=== PATIENT | male | born 1985 | race Caucasian/White ===

== ENCOUNTER 2018-02-08 11:48 | Emergency (ER) | payer OTHER ==
[2018-02-08 11:59] VITALS: BP 140/80
--- NOTE | 2018-02-08 12:16 | EDPHY ---
H & P Stated Complaint: sinus congestion and left ear pain started 1 week ago Time Seen by Provider: 02/08/18 12:10 HPI/ROS: CHIEF COMPLAINT: Sinus congestion and left ear pain HISTORY OF PRESENT ILLNESS: The patient is a healthy 32-year-old man who comes to the emergency department complaining that for the last week or so he and his family have had runny nose and cold. Rest of his family seemed to improve however he developed sinus congestion and pain over the last several days. Today he also developed severe left ear pain. No dizziness. No tinnitus. No vision changes. No headache. No neck stiffness. No cough, no difficulty breathing. Severity: Moderate Modifying factors: No improvement with Mucinex REVIEW OF SYSTEMS: Constitutional: denies: chills, fever, recent illness, recent injury EENTM: See HPI Respiratory: denies: cough, shortness of breath Cardiac: denies: chest pain, irregular heart rate, lightheadedness, palpitations Gastrointestinal/Abdominal: denies: abdominal pain, diarrhea, nausea, vomiting, blood streaked stools Genitourinary: denies: dysuria, frequency, hematuria, pain Musculoskeletal: denies: joint pain, muscle pain Skin: denies: lesions, rash, jaundice, bruising Neurological: denies: headache, numbness, paresthesia, tingling, dizziness, weakness Hematologic/Lymphatic: denies: blood clots, easy bleeding, easy bruising Immunologic/allergic: denies: HIV/AIDS, transplant 10 systems reviewed and negative except as noted EXAM: GENERAL: Well-appearing, well-nourished and in no acute distress. HEAD: Atraumatic, normocephalic. EYES: Pupils equal round and reactive to light, extraocular movements intact, sclera anicteric, conjunctiva are normal. ENT: Left tympanic membrane erythematous and fusion with slight bleeding., sinus congestion and mild tenderness, oropharynx clear without exudates. Moist mucous membranes. NECK: Normal range of motion, supple without lymphadenopathy or JVD. LUNGS: Breath sounds clear to auscultation bilaterally and equal. No wheezes rales or rhonchi. HEART: Regular rate and rhythm without murmurs, rubs or gallops. ABDOMEN: Soft, nontender, normoactive bowel sounds. No guarding, no rebound. No masses appreciated. BACK: No CVA tenderness, no spinal tenderness, step-offs or deformities EXTREMITIES: Normal range of motion, no pitting or edema. No clubbing or cyanosis. NEUROLOGICAL: Cranial nerves II through XII grossly intact. Normal speech, normal gait. 5/5 strength, normal movement in all extremities, normal sensation , normal reflexes PSYCH: Normal mood, normal affect. SKIN: Warm, dry, normal turgor, no visible rashes or lesions. Source: Patient Exam Limitations: No limitations - Medical/Surgical History Hx Asthma: No Hx Chronic Respiratory Disease: No Hx Diabetes: No Hx Cardiac Disease: No Hx Renal Disease: No Hx Cirrhosis: No Hx Alcoholism: No Hx HIV/AIDS: No Other PMH: denies - Family History Significant Family History: No pertinent family hx - Social History Smoking Status: Current every day smoker Alcohol Use: Sober Drug Use: None Constitutional: Initial Vital Signs Temperature (C) 36.6 C 02/08/18 11:56 Heart Rate 73 02/08/18 11:56 Respiratory Rate 18 02/08/18 11:56 Blood Pressure 140/80 H 02/08/18 11:56 O2 Sat (%) 95 02/08/18 11:56 O2 Delivery Mode Room Air Allergies/Adverse Reactions: No Known Allergies Allergy (Unverified 02/08/18 11:56) Home Medications: Medication Instructions Recorded Azithromycin [Zithromax] 250 mg PO DAILY #6 tab 02/08/18 Medical Decision Making ED Course/Re-evaluation: The patient clinically has otitis media and likely sinusitis as well. Will treat with azithromycin. Also he asked if there was something that would provide more immediate relief. We discussed Afrin another decongestants as well as [id number] pain medications. We discussed indications for returning. Differential Diagnosis: Partial list of the Differential diagnosis considered include but were not limited to; sinusitis, otitis media, upper respiratory tract infection and although unlikely based on the history and physical exam, I also considered meningitis, sepsis, hemorrhage, abscess. I discussed these differential diagnoses and the plan with the patient as well as the usual and expected course. The patient understands that the diagnosis is provisional and that in medicine we are not always correct and that further workup is often warranted. Usual and customary warnings were given. All of the patient's questions were answered. The patient was instructed to return to the emergency department should the symptoms at all worsen or return, otherwise to followup with the physician as we discussed. Departure - Departure Disposition: Home, Routine, Self-Care Clinical Impression: Left otitis media with effusion Sinusitis Qualifiers: Sinusitis location: maxillary Chronicity: acute Recurrence: non-recurrent Qualified Code(s): J01.00 - Acute maxillary sinusitis, unspecified Condition: Fair Instructions: Barotitis Media (ED) Additional Instructions: Also use Afrin for decongestant and Motrin for pain as needed as discussed Referrals: Gómez Hooks MD [[facility] [place] Primary Care Provider] - 2-3 days, if not improved Prescriptions: Azithromycin [Zithromax] 250 mg PO DAILY #6 tab
== END 2018-02-08 12:22 | disposition home or self-care (01) ==
LOC: CED 11:48
DX: H65.92 Unspecified nonsuppurative otitis media, left ear (principal); J01.00 Acute maxillary sinusitis, unspecified; F17.200 Nicotine dependence, unspecified, uncomplicated
CPT/HCPCS: 99283-ER